=== PATIENT | female | born 1940 | race Two or more races ===

== ENCOUNTER 2023-11-18 14:37 | Inpatient (IN) | payer OTHER ==
[~2023-11-18] VITALS: Ht 152.4 cm; Wt 58.5 kg
[2023-11-18] MEDS ORDERED: POMALYST2 MG PO (15:32)
[2023-11-18] MEDS ORDERED: CARVEDILOL ER40 MG PO (15:32)
--- NOTE | 2023-11-18 15:32 | NUR ---
SE RECIBE PTE FEMENINA ALERTA Y ORIENTADA EN [place] ESFERAS EN COMPANIA DE FAMILIAR REFIERE FALTA DE APETITO Y DESORIENTACION DESDE HACE VARIOS MORGAN. INDICA ES PTE DE Y ESTA LA ENVIA PARA [employer].
[2023-11-18] MEDS ORDERED: 0.9 % SODIUM CHLORIDE 1,000 ML IV SCH ×2 (16:15→20:45)
--- NOTE | 2023-11-18 16:40 | NUR ---
PACIENTE EVALUADA POR DR NAT FAIRIEN [place] [facility], SONA GARCIA LE ORIENTA A PACIENTE SOBRE EL MISMO Y VERBALIZA ENTENDER, LE COLECTA MUESTRAS DE LABORATORIO Y LE CANALIZA BAJO MEDIDAS ASEPTICAS, SE LE COLOCAN IV FLUIDS ZORAIDA ORDEN. PENDIENTE ESTUDIO DE CT.
[2023-11-18 17:21] LABS: HEMATOCRIT 24.7 % (36.0-45.00); MEAN CELL VOLUME 96.7 fL (80.00-100.00); MEAN CORPUSCULAR HGB CONC 34.2 g/dl (32.0-36.0); PLATELET COUNT 340 K/uL (150-450); RED BLOOD COUNT 2.55 M/uL (4.00-6.00)
[2023-11-18 17:36] LABS: ALBUMIN 2.6 gm/dL (3.4-5.0); BILIRUBIN TOTAL 0.74 mg/dL (0.3-1.2); CALCIUM 11.5 mg/dL (8.5-10.1); CREATININE SERUM 2.17 mg/dL (0.55-1.02); GFR 21.76; GLOBULINA 8.1 G/DL (2.4-3.5); POTASSIUM 3.69 mEq/L (3.5-5.1); TOTAL PROTEIN 10.7 gm/dL (6.4-8.2)
[2023-11-18 18:25] LABS: HEMOGLOBIN 8.4 g/dL (12.0-15.00); MEAN CORPUSCULAR HEMOGLOBIN 32.9 pg (27.00-32.0)
[2023-11-18] MEDS ORDERED: FUROsemide 20 MG/2 ML VIAL IV SCH (19:00)
--- NOTE | 2023-11-18 20:22 | NUR ---
SE SARA TUBOS PILOTOS A PTE PARA REQUIZAR 2 UNIDADES DE PRBC FRACCIONADAS PARA TRANSFUNDIR. SE LLEVAN TUBOS PILOTOS A LABORATORIO A LAS 8:20PM.
[2023-11-18] MEDS ORDERED: ONDANSETRON HCL 4 MG in 0.9 % SODIUM CHLORIDE 50 ML IV PRN (20:30)
[2023-11-18] MEDS ORDERED: ACETAMINOPHEN 500 MG GEL..CAP PO PRN (20:45)
[2023-11-18] MEDS ORDERED: CARVEDILOL 3.125 MG TABLET PO SCH (21:00)
[2023-11-18 21:55] LABS: PH,URINE 6.5 (5.0-8.0); URINE APPEARANCE Clear; URINE BILIRRUBIN Negative (NEGATIVE); URINE BLOOD Negative; URINE COLOR Yellow; URINE GLUCOSE Negative (NEGATIVE); URINE LEUKOCYTE Negative; URINE NITRATE Negative; URINE PROTEIN 30 (NEGATIVE); URINE UROBILINOGEN 0.2 E.U./dl
[2023-11-18 21:58] LABS: URINE BACTERIA 88.2 uL (0.0-1933); URINE EPITHELIAL CELLS 1.6 uL (0.0-38.8); URINE RBC 3.3 uL (0.0-20.8)
[2023-11-18 22:02] LABS: URINE WBC 0.3 uL (0.0-23.2)
[2023-11-19 00:56] LABS: MAGNESIUM 1.9 mg/dL (1.8-2.4); PHOSPHOROUS 3.3 mg/dL (2.5-4.9)
[2023-11-19 01:02] LABS: INR 0.99; PROTHROMBIN TIME 10.4 SECONDS (9.0-11.5)
[2023-11-19 01:45] LABS: PARTIAL THROMBOPLASTIN TIME < 20.0 SECONDS (22.0-34.0)
[2023-11-19] MEDS ORDERED: VITAMIN B COMPLEX/LYSINE 1 ML ML PO SCH (09:00)
[2023-11-19] MEDS ORDERED: IRBESARTAN 150 MG TABLET PO SCH (09:00)
[2023-11-19] MEDS ORDERED: AMINO ACIDS/PROTEIN HYDROLYS 30 ML BLIST.PACK PO SCH (09:00)
[2023-11-19] MEDS ORDERED: IRON FUM,PS/FOLIC/BCOMP,C NO.9 1 CAP CAPSULE PO SCH (09:00)
[2023-11-19] MEDS ORDERED: FAMOTIDINE/PF 20 MG in 0.9 % SODIUM CHLORIDE 8 ML IV PUSH SCH (09:00)
[2023-11-19] MEDS ORDERED: MEMANTINE HCL 10 MG TABLET PO SCH (09:00)
[2023-11-19] MEDS ORDERED: hydrALAZINE HCL 25 MG TABLET PO SCH (09:22)
[2023-11-19] MEDS ORDERED: Cyanocobalamin/Mecobalamin 1 TAB.SL SL SCH (16:09)
[2023-11-19] MEDS ORDERED: SOD FERRIC GLUC COMPLX/SUCROSE 62.5 MG/5 ML AMPUL IV SCH (16:10)
[2023-11-19] MEDS ORDERED: VITAMIN B COMPLEX 1 EACH PO SCH (17:00)
[2023-11-20] MEDS ORDERED: hydrALAZINE HCL 20 MG VIAL IV PRN (04:15)
[2023-11-20] MEDS ORDERED: VITAMIN B COMPLEX/LYSINE 1 ML ML PO SCH (08:00)
[2023-11-21 03:37] LABS: HEMOGLOBIN 10.4 g/dL (12.0-15.00); MEAN CELL VOLUME 91.9 fL (80.00-100.00); MEAN CORPUSCULAR HEMOGLOBIN 30.9 pg (27.00-32.0); MEAN CORPUSCULAR HGB CONC 33.6 g/dl (32.0-36.0); PLATELET COUNT 285 K/uL (150-450); RED BLOOD COUNT 3.37 M/uL (4.00-6.00)
[2023-11-21 12:35] LABS: ALBUMIN 2.3 gm/dL (3.4-5.0); CALCIUM 10.1 mg/dL (8.5-10.1); CREATININE SERUM 1.91 mg/dL (0.55-1.02); GFR 25.22; GLOBULINA 6.7 G/DL (2.4-3.5); POTASSIUM 3.33 mEq/L (3.5-5.1)
[2023-11-21] MEDS ORDERED: POLYETHYLENE GLYCOL 3350 17 GM BLIST.PACK PO SCH (17:00)
[2023-11-21] MEDS ORDERED: POTASSIUM CHLORIDE IN WATER 100 ML IV ONE (22:45)
[2023-11-22 05:59] LABS: ALBUMIN 2.2 gm/dL (3.4-5.0); BILIRUBIN TOTAL 0.87 mg/dL (0.3-1.2); CALCIUM 10.2 mg/dL (8.5-10.1); CREATININE SERUM 1.67 mg/dL (0.55-1.02); GFR 29.44; GLOBULINA 6.3 G/DL (2.4-3.5); POTASSIUM 3.43 mEq/L (3.5-5.1); TOTAL PROTEIN 8.5 gm/dL (6.4-8.2)
[2023-11-22] MEDS ORDERED: POTASSIUM CHLORIDE IN WATER 100 ML IV ONE (08:00)
[2023-11-22] MEDS ORDERED: BISACODYL 5 MG TABLET.EC PO SCH (14:44)
[2023-11-22] MEDS ORDERED: Neurin-Sl Tablet Sl SL (15:31)
[2023-11-22] MEDS ORDERED: FLEET BISACODYL5 MG PO (15:31)
[2023-11-22] MEDS ORDERED: POLY119PG PO (15:31)
[2023-11-22] MEDS ORDERED: INTEGRA PLUS C1 EACH PO (15:31)
[2023-11-22] MEDS ORDERED: B Complex PO (15:31)
[2023-11-22] MEDS ORDERED: HYDRALAZINE HCL25 MG PO (15:31)
[2023-11-22] MEDS ORDERED: PROTEINEX-18 LI30 ML PO (15:31)
[2023-11-22] MEDS ORDERED: APETIGEN P12.5 MG/15 PO (15:31)
[2023-11-22] MEDS ORDERED: CARVEDILOL3.125 MG PO (15:31)
[2023-11-22] MEDS ORDERED: NAMENDA10 MG PO (15:31)
== END 2023-11-22 15:50 | disposition home or self-care (01) | DRG 682 ==
LOC: ER 14:38 → MEDI 20:49 → SEC-K 20:49 → MEDI 11-19 02:01
PROVIDERS: General Practice; Internal Medicine; ADMIT Internal Medicine; ATTEND Internal Medicine
PROC: BW28ZZZ Computerized Tomography (CT Scan) of Head (ICD-10-PCS; principal; 2023-11-18)
PROC: 30233N1 Transfusion of Nonautologous Red Blood Cells into Peripheral Vein, Percutaneous Approach (ICD-10-PCS; 2023-11-19)
PROC: BT4JZZZ Ultrasonography of Kidneys and Bladder (ICD-10-PCS; 2023-11-19)
DX: N17.9 Acute kidney failure, unspecified (principal); G93.41 Metabolic encephalopathy; C90.00 Multiple myeloma not having achieved remission; E87.1 Hypo-osmolality and hyponatremia; D63.0 Anemia in neoplastic disease; Z79.4 Long term (current) use of insulin; I12.9 Hypertensive chronic kidney disease with stage 1 through stage 4 chronic kidney disease, or unspecified chronic kidney disease; E11.22 Type 2 diabetes mellitus with diabetic chronic kidney disease; N18.30 Chronic kidney disease, stage 3 unspecified; F03.90 Unspecified dementia, unspecified severity, without behavioral disturbance, psychotic disturbance, mood disturbance, and anxiety; Z20.822 Contact with and (suspected) exposure to COVID-19